=== PATIENT | male | born 1985 | race Two or more races ===

== ENCOUNTER 2025-02-23 10:37 | Emergency (ER) | payer MEDICAID, SELFPAY ==
--- NOTE | 2025-02-23 10:41 | EKG_ITS ---
[facility] Test Date: 2025-02-23 Pat Name: FREDY HEADLEY Department: Room: - Gender: Male Winder Hand: : 1985 Requested By: Aquiles Su Order Number: [id number] Reading MD: Aquiles Su Measurements Intervals [place] Rate: 104 P: 41 AR: 132 QRS: 49 QRSD: 88 T: 44 QT: 332 QTc: 437 Interpretive Statements SINUS TACHYCARDIA POSSIBLE LEFT ATRIAL ENLARGEMENT [-0.1mV P-WAVE IN V1/V2] NONSPECIFIC T-WAVE ABNORMALITY ABNORMAL RHYTHM ECG No previous ECG available for comparison /store/S0/[id number].pdf
[2025-02-23 10:47] VITALS: BP 127/94; PULSE 100; RESP 18; TEMP 37.5; O2SAT 97
--- NOTE | 2025-02-23 10:54 | XR_ITS ---
Examination: PA lateral chest 2 views TECHNIQUE: Upright PA lateral chest 2 views Date and time: February 23, 2025 1127 hours INDICATIONS: Right-sided chest pain today. FINDINGS: Normal heart size. Lungs are clear. The osseous structures are intact. IMPRESSION: No active disease.
--- NOTE | 2025-02-23 10:54 | PD.EDARRY ---
ED Arrhythmia Palp. RME/HPI General Chief Complaint: Anxiety Stated Complaint: took diet pills, anxiety, palpitations Time Seen by Provider: 02/23/25 10:41 Source: patient Arrival date/time: 02/23/25 10:37 39-year-old male with a history of anxiety presents to the emergency room with a chief complaint of palpitations x 1 day. Patient states he took type pills and since taking these pills began to feel the palpitations. Mode of arrival: ambulatory Limitations: no limitations Related Data Previous Rx's ?Medication ?Instructions ?Recorded chlordiazepoxide HCl 25 mg capsule 25 mg PO Q8HR #20 caps 07/11/20 folic acid 1 mg tablet 1 mg PO BID #60 tabs 07/11/20 magnesium oxide 400 mg (241.3 mg 400 mg PO BID #14 tabs 07/11/20 magnesium) tablet multivitamin with minerals-ferrous 1 tab PO QDAY #30 tabs 07/11/20 sulfate 4.5 mg iron tablet (One Daily Multivitamins with Minerals) omeprazole 40 mg capsule,delayed 40 mg PO QDAY #30 caps 07/11/20 release potassium chloride 20 mEq 40 meq (2 x 20 mEq) PO BIDWM #60 07/11/20 tablet,extended release(part/cryst) tabs thiamine HCl (vitamin B1) 100 mg 100 mg PO BID #60 tabs 07/11/20 tablet (Vitamin B-1) Allergies Allergy/AdvReac Type Severity Reaction Status Date / Time No Known Allergies Allergy Verified 02/23/25 10:40 Review of Systems Review of Systems Systems Reviewed: All systems reviewed, normal except as documented Constitutional Constitutional: Reports system reviewed and no additional complaints, except as documented, Denies fatigue, Denies fever(s), Denies headache(s) and Denies weakness Eyes Eyes: Reports system reviewed and no additional complaints, except as documented, Denies blurry vision and Denies change in vision ENT Ears, Nose, Mouth, and Throat: Reports system reviewed and no additional complaints, except as documented, Denies otalgia, Denies headache(s), Denies nasal congestion, Denies throat swelling and Denies vertigo Cardiovascular Cardiovascular: Reports system reviewed and no additional complaints, except as documented, Reports chest pain, Reports dyspnea, Denies dyspnea on exertion and Reports palpitations Respiratory Respiratory: Reports system reviewed and no additional complaints, except as documented, Denies chest congestion, Denies cough, Reports dyspnea, Denies dyspnea on exertion and Denies wheezing Gastrointestinal Gastrointestinal: Reports system reviewed and no additional complaints, except as documented, Denies abdominal pain, Denies cramping, Denies nausea and Denies vomiting Genitourinary Genitourinary: Reports system reviewed and no additional complaints, except as documented, Denies dysuria and Denies hematuria Musculoskeletal Musculoskeletal: Reports system reviewed and no additional complaints, except as documented and Denies back pain Integumentary/Breasts Skin/Breast: Reports system reviewed and no additional complaints, except as documented and Denies wounds Neurologic Neurologic: Reports system reviewed and no additional complaints, except as documented, Denies confusion, Denies headache(s), Denies lack of coordination, Denies vertigo and Denies weakness Psychiatric Psychiatric: Reports system reviewed and no additional complaints, except as documented, Denies anxiety, Denies confusion, Denies depression, Denies paranoia, Denies suicidal ideation and Denies tactile hallucinations Endocrine Endocrine: Reports system reviewed and no additional complaints, except as documented, Denies fatigue and Reports palpitations Hematologic/Lymphatic Hematologic/Lymphatic: Reports system reviewed and no additional complaints, except as documented and Denies lymphadenopathy Allergic/Immunologic Allergic/Immunologic: Reports system reviewed and no additional complaints, except as documented, Denies throat swelling, Denies urticaria and Denies wheezing Past Medical History Past Medical History NEUROLOGIC: Positive Seizures CARDIAC: Negative Congestive Heart Failure RESPIRATORY: Negative Chronic Obstructive Pulmonary Disease (COPD) GENITOURINARY: Negative Renal Disease MUSCULOSKELETAL: Positive Fractures ENDOCRINE: Negative Diabetes Mellitus Type 1 or Diabetes Mellitus Type 2 PSYCHO/SOCIAL: Positive Recreational Drug Use OTHER HISTORY: Positive Falls Social History SMOKING STATUS: Never smoker SUBSTANCE USE: former substance user and marijuana ED Exam General Limitations: Present no limitations General appearance: Present alert and in no apparent distress Head Head exam: Present atraumatic Eye Eye exam: Present normal appearance, PERRL and EOMI ENT ENT exam: Present normal exam, normal oropharynx and mucous membranes moist Neck Neck exam: Present normal inspection, full ROM and trachea midline Chest Chest inspection: Present normal inspection and symmetric chest wall rise Respiratory Respiratory exam: Present normal lung sounds bilaterally; Absent respiratory distress, wheezes, stridor, accessory muscle use or prolonged expiratory phase Cardiovascular Cardiovascular exam: Present regular rate, normal rhythm, tachycardia, normal heart sounds, +S1 and +S2; Absent bradycardia, irregular rhythm, systolic murmur, diastolic murmur, rubs, gallop, clicks or JVD Abdominal Exam Abdominal exam: Present soft and normal bowel sounds Extremities Exam Extremities exam: Present normal inspection and full ROM Back Exam Back exam: Present normal inspection and full ROM Neurological Exam Neurological exam: Present alert, oriented X3 and CN II-XII intact Psychiatric Psychiatric exam: Present normal affect and normal mood Skin Skin exam: Present warm, dry, intact and normal color Course Quality Measures none Orders Category Date Time Status EKG (ED ONLY) *Do not use* NOW Care 02/23/25 10:41 Completed EKG (ED Only) Stat Exams 02/23/25 10:41 Draft XR chest 2V Stat Exams 02/23/25 10:54 Ordered B-Type Natriuretic Peptide Stat Lab 02/23/25 10:54 Ordered CBC Stat Lab 02/23/25 10:54 Ordered Comprehensive Metabolic Panel Stat Lab 02/23/25 10:54 Ordered Drug Screen,Urine Stat Lab 02/23/25 10:54 Ordered Troponin I Stat Lab 02/23/25 10:54 Ordered Urinalysis Stat Lab 02/23/25 10:54 Ordered Vital Signs Vital signs: Vital Signs Temperature 99.5 F 02/23/25 10:47 Pulse Rate 100 02/23/25 10:47 Respiratory Rate 18 02/23/25 10:47 Blood Pressure 127/94 H 02/23/25 10:47 Pulse Oximetry (%) 97 02/23/25 10:47 Oxygen Delivery Method Room Air 02/23/25 10:47 PROCEDURES: EKG Interpretation #1: Date of EK02/23/25 Rate: 104 Interpretation: Reviewed by me EKG Impression: Sinus tachycardia Arrhythmia/Palpitations MDM Narrative MDM Narrative:: 39-year-old male with a history of anxiety presents to the emergency room with a chief complaint of palpitations x 1 day. Patient states he took type pills and since taking these pills began to feel the palpitations. Patient is hemodynamically stable and in no apparent distress Physical examination shows clear bilateral lung sounds there is no wheezing stridor or any abnormal breath sounds. Patient has a strong and regular rhythm S1 and S2 noted EKG was completed and shows sinus tachycardia [address] deviation Chest x-ray was completed and was negative for any acute findings. CBC CMP troponin were all negative Patient was discharged and educated to follow-up with primary care provider in the next 24 to 48 hours and return to the emergency room for any evidence of worsening signs or symptoms Patient data External records reviewed:: [facility] previous records Clinical information provided by:: patient Social determinants that could affect healthcare access:: none Patient has the following chronic illnesses:: Anxiety How is presenting disease/condition affected by chronic disease/condition?: exacerbated by Evaluation data The following diagnostics were reviewed and interpreted by me:: lab results and radiology exam(s) Lab and/or radiology exams considered but not ordered:: Labs and radiology exams considered in order Interpretation Summary: Chest [id number]: Normal heart size. Lungs are clear. The osseous structures are intact. IMPRESSION: No active disease. Medications / Prescriptions Medications or Prescriptions considered but not ordered:: Medication given Medication administrations:: Medication given Consultations Consultation(s) initiated? (list below): No Diagnosis Differential diagnosis arrhythmia/palpitations: palpitations, anxiety, sinus tachycardia, supraventricular tachycardia and ventricular tachycardia Most likely diagnosis given after review of the tests above:: Anxiety Admission Indicated Admission indicated?: not indicated Admission Request Was there a request for admission?: No Disposition Plan Disposition Plan: Discharge Discharge Attestation Discharge Attestation: The patient and all family members were given an opportunity to ask questions and understood the discharge instructions. Discharge instructions specifically effects, indications for sooner follow up or return to the emergency department, and the expected course of current diagnosis. Patient condition: Stable Discharge Plan Plan Patient Disposition: HOME (Self Care) Discharge Disposition comment: Stable Prescriptions/Referrals Prescriptions/Med Rec: No Action thiamine HCl (vitamin B1) [Vitamin B-1] 100 mg Tablet 100 mg PO BID Qty: 60 0RF potassium chloride 20 mEq Tablet,Er Particles/Crystals 40 meq PO BIDWM Qty: 60 0RF magnesium oxide 400 mg (241.3 mg magnesium) Tablet 400 mg PO BID Qty: 14 0RF chlordiazepoxide HCl 25 mg Capsule 25 mg PO Q8HR Qty: 20 0RF folic acid 1 mg Tablet 1 mg PO BID Qty: 60 0RF One Daily Multi-Vit w-Mineral 4.5 mg iron Tablet 1 tab PO QDAY Qty: 30 0RF omeprazole 40 mg capsule,delayed release(DR/EC) 40 mg PO QDAY Qty: 30 0RF Referrals: Jairon Schofield MD [Primary Care Provider] - In 1 week Problem List Clinical Impression: Acute anxiety Patient/Caregiver Discharge Instructions Education Materials: ED Anxiety Reaction Additional Instructions: Please follow-up with your primary care provider in the next 24 to 48 hours Your cardiac examination was within normal limits. Your EKG was normal and your blood work was normal For any evidence of worsening signs or symptoms return to the emergency room immediately Print Language: Welsh Stand Alone Forms: Sherron Award Info., Patient Portal Info Letter PA/HEAT TREATMENT TECHNICIAN Supervising Physician PA/HEAT TREATMENT TECHNICIAN Supervising Physician: Dr. Lenard ECHEVERRIA Attestation MD Attestation The patient was seen by the midlevel practitioner. I, the co-signing physician, was present during the entire ER visit. While I did not physically examine the patient, I was available for consultation as needed. I agree with the plan and documentation.
[2025-02-23 11:34] LABS: Basophils # (Auto) 0.1 Thou/mm3 (0.0-0.2); Basophils % (Auto) 1 % (0-2.5); Eosinophils # (Auto) 0.0 Thou/mm3 (0.0-0.5); Eosinophils % (Auto) 0 % (0-10); Hematocrit 49.3 % (41.0-53.0); Hemoglobin 17.1 g/dL (13.5-16.0); Immature Granulocytes Auto 0.13 Thou/mm3 (0.00-0.00); Lymphocytes # (Auto) 1.9 Thou/mm3 (1.0-4.8); Lymphocytes % (Auto) 15 % (10-50); Mean Corpuscular HGB Conc 34.7 g/dl (31.0-37.0); Mean Corpuscular Hemoglobin 29.0 pg (25.0-35.0); Mean Corpuscular Volume 84 fL (80-100); Monocytes # (Auto) 0.9 Thou/mm3 (0.0-0.8); Monocytes % (Auto) 7 % (0-12); Neutrophils # (Auto) 9.8 Thou/mm3 (1.8-7.7); Neutrophils % (Auto) 76 % (37-80); Nucleated Red Blood Cell # 0.00 Thou/mm3 (0.00-0.00); Nucleated Red Blood Cell % 0 /100 WBC (0); Platelet Count 274 Thou/mm3 (140-440); RDW Standard Deviation 42.0 fL (35.1-43.9); Red Blood Count 5.90 Miln/mm3 (4.50-5.90); White Blood Count 12.9 Thou/mm3 (3.8-10.6)
[2025-02-23 11:53] LABS: B-Type Natriuretic Peptide 23 pg/mL (0-100)
[2025-02-23 12:06] LABS: Alanine Aminotransferase 8 U/L (10-49); Albumin, Serum 4.8 gm/dL (3.5-5.0); Albumin/Globulin Ratio 1.7 (1.2-2.2); Alkaline Phosphatase 78 U/L (46-116); Anion Gap 11 (7-16); Aspartate Amino Transferase 18 U/L (0-34); BUN/Creatinine Ratio 5 Ratio (12-20); Bilirubin,Total 0.9 mg/dL (0.3-1.2); Blood Urea Nitrogen 7 mg/dL (9-23); Calcium 10.1 mg/dL (8.3-10.6); Calcium (Corrected) 10.1 mg/dL (8.5-10.1); Carbon Dioxide 27.1 mMol/L (20.0-31.0); Chloride 102 mMol/L (98-107); Creatinine (Component) 1.3 mg/dL (0.6-1.3); Globulin 2.8 gm/dL (2.3-3.5); Glucose 107 mg/dL (74-106); Osmolality,Calculated 277 (275-295); Potassium 4.3 mMol/L (3.4-5.1); Sodium 140 mMol/L (136-145); Total Protein 7.6 gm/dL (5.7-8.2); Troponin I < 0.020 ng/mL (0.0-0.045); eGFR > 60 See Note
[2025-02-23 12:27] LABS: Collection Type, Urine Clean Catch
[2025-02-23 12:35] LABS: Bilirubin,Urine Negative (Negative); Blood,Urine Trace (Negative); Clarity,Urine Clear (Clear/Hazy); Color,Urine Yellow (Lt Yel-Yel); Glucose, Urine Negative (Negative); Hyaline Casts,Urine 3 /hpf (0-1); Ketones,Urine Negative (Negative); Leukocyte Esterase,Urine Negative (Negative); Nitrite,Urine Negative (Negative); PH,Urine 6.0 (5.0-7.0); Protein,Urine Trace (Neg - Trace); RBC,Urine 4 /hpf (0-3); Specific Gravity,Urine 1.024 (1.001-1.035); Squamous Epithelial Cell,Urine < 1 /hpf (0-5); Urobilinogen,Urine Negative mg/dL (0.0-1.0); WBC,Urine 1 /hpf (0-5)
[2025-02-23 12:36] LABS: Sperm,Urine Absent
[2025-02-23 12:40] LABS: Amphetamine/Methamp Scrn,U Negative (Negative); Barbiturate Screen,Urine Negative (Negative); Benzodiazepines Screen,Urine Negative (Negative); Benzoylecgonine Screen, Ur Negative (Negative); Fentanyl Screen,Urine Negative (Negative); Opiate Screen,Urine Negative (Negative); THC Screen,Urine Negative (Negative)
[2025-02-23 13:15] VITALS: BP 142/82; PULSE 80
== END 2025-02-23 13:43 | disposition home or self-care (01) ==
PROVIDERS: Nurse Practitioner Family; Emergency Provider Family Medicine; PCP Family Medicine
DX: F41.1 Generalized anxiety disorder (principal); R00.0 Tachycardia, unspecified; Z79.899 Other long term (current) drug therapy
CPT/HCPCS: 36415; 71046; 80053; 80307; 81001; 83880; 84484; 85025; 93005; 99283; A9270